=== PATIENT | male | born 1950 | race Caucasian/White ===

== ENCOUNTER 2017-05-26 13:14 | Inpatient (IN) | payer MEDICARE, BC ==
[~2017-05-26] VITALS: Ht 193 cm
[2017-05-26 15:10] LABS: BASOPHILS 0.5 % (0-2); EOSINOPHILS 1.4 % (0-7); HEMATOCRIT 46.1 % (42.0-54.0); IMMATURE GRANULOCYTES 2.1 % (0-5); LYMPHOCYTES 21.3 % (15-50); MCH 34.9 pg (26.0-34.0); MCHC 34.7 g/dL (31.0-37.0); MCV 100.7 fL (80.0-100.0); MEAN PLATELET VOLUME 10.6 fL (7.4-10.4); MONOCYTES 5.9 % (2-11); NEUTROPHILS 68.8 % (40-80); PLATELET COUNT 241 10x3/uL (130-400); RBC 4.58 10x6/uL (4.20-6.10); RDW 12.7 % (11.5-14.5); WBC 13.2 10x3/uL (4.8-10.8)
[2017-05-26 15:20] LABS: APPEARANCE CLEAR (CLEAR); COLOR YELLOW (YELLOW); SPECIFIC GRAVITY 1.015 (1.005-1.020)
[2017-05-26 15:21] LABS: BILIRUBIN NEGATIVE (NEGATIVE); GLUCOSE 1000 mg/dL (NEGATIVE); KETONE NEGATIVE (NEGATIVE); LEUKOCYTE ESTERASE NEGATIVE (NEGATIVE); NITRITE NEGATIVE (NEGATIVE); PROTEIN NEGATIVE (NEGATIVE); UROBILINOGEN NORMAL (NORMAL)
[2017-05-26 15:27] LABS: ALBUMIN 3.9 g/dL (3.4-5.0); ANION GAP 16.6 mmol/L (8-16); BILIRUBIN - TOTAL 0.64 mg/dL (0.2-1.3); CALCIUM 9.3 mg/dL (8.5-10.1); CARBON DIOXIDE 24.6 mmol/L (21.0-32.0); CREATININE - SERUM 1.7 mg/dL (0.6-1.3); POTASSIUM - SERUM 4.2 mmol/L (3.5-5.1); PROTEIN - SERUM 7.9 g/dL (6.4-8.2)
[2017-05-26 16:58] LABS: CREATINE KINASE 50 UL (21-232); PRO BNP 33 pg/mL (0-125)
[2017-05-26 17:03] LABS: TROPONIN-I < 0.017 ng/mL (0.000-0.060)
[2017-05-26 17:44] LABS: KETONE - SERUM NEGATIVE (NEGATIVE)
[2017-05-26 18:08] LABS: THYROID STIMULATING HORMONE 24.68 uIU/mL (0.36-3.74)
[2017-05-26] MEDS ORDERED: GLUCOPHAGE1000 MG PO (20:56)
[2017-05-26] MEDS ORDERED: LEVOTHYROXINE125 MCG PO (20:56)
--- NOTE | 2017-05-26 23:43 | NUR ---
FIRST [facility] SHOWED 425, A STAT GLUCOSE LEVEL WAS ORDERED AND CAME BACK AT 454. 20UNITS NILESH LOG GIVEN. GLUCOSE LEVEL WAS RECHECED A LITTLE MORE THAN AN HOUR LATER AND CAME BACK AT 399. MARKUS, PROFILE GRINDER TECHNICIAN, WAS NOTIFIED VERBALLY ON THE FLOOR. SHE GAVE INSTRUCTIONS TO RECHECK IN ANOTHER HOUR. PATIENT HAD INCREASED ANXIETY WHILE DOING THE QUICK START AND ADMISSION HISTORY. HIS CONCERNS WERE RELATED TO HIS "OTHER BAG" THAT HAD HIS WALET AND MEDICATIONS IN. DAY IN ER WAS CALLED FROM THE ROOM AND INFORMED THAT A POSSIBLE BAG WAS MISSING. DAY LEFT A MESSAGE WITH MED 2 STAFF THAT THE BAG WAS TAKEN TO HIS HOME BY THE NEGIBOR. PATIENT WAS INFORMED, SOME ANXIETY WAS RELIEVED BUT HE DOESN'T KNOW HIS MEDICATIONS HE IS TAKING AT HOME NOR AN EMERGENCY CONTACT.
--- NOTE | 2017-05-27 02:01 | NUR ---
[facility] WAS 450, DR MILES WAS PAGED
--- NOTE | 2017-05-27 02:09 | NUR ---
DR MILES ORDERED A x1 20 UNIT OF LANTUS AND NOT TO RECHECK AGAIN BECAUSE HE STAYS AROUND 390 AND HAS AN A1C OF 12 FROM THE [facility] HE REVIEWED ALREADY AND NOT TO RECHECK UNTIL THE MORNING.
--- NOTE | 2017-05-27 02:59 | NUR ---
PT WAS ASSESSED FOR ADMISSION ASSESSMENT. HE WAS ANGRY AND BELLIGERENT TO NURSE. TOLD NURSE TO "GO FK YOURSELF" BECAUSE NURSE ASKED HIM IF HE KNEW WHERE HE WAS AT WHEN HE SAID HE HAD BEEN LAYING HERE FOR 2 DAYS. PHYSICAL ASSESSMENT COMPLETED WITH PT SWEARING AGAIN WHEN NURSE DID NEURO CHECK OF PUPILS WITH PENLIGHT. IVF INFUSING TO RFA. REPORT GIVEN TO PRIMARY NURSE.
[2017-05-27 03:02] VITALS: Ht 193 cm
--- NOTE | 2017-05-27 03:13 | NUR ---
CALL LIGHT IN REACH, WILL CONTINUE WITH PLAN OF CARE.
[2017-05-27 04:00] VITALS: BP 126/75
--- NOTE | 2017-05-27 07:10 | NUR ---
AM ROUNDS - PT RESTING QUIETLY, DENIES NEEDS AT THIS TIME. RR EVEN AND UNLABORED. INTRODUCED SELF AND PLACED NAME ON WHITE BOARD. BED IN LOWEST POSTION, CALL HERNANDEZ IN RE[place], WILL CTM.
[2017-05-27 08:00] VITALS: BP 111/70
--- NOTE | 2017-05-27 10:00 | NUR ---
PT VERY AGITATED AND WANTS TO LEAVE NOW. PT STATES "NO ONE IS LISTENING TO ME AND I WANT TO LEAVE." EXPLAINED THAT PT WOULD HAVE TO LEAVE AMA SINCE HE IS NOT DISHCARGED. PT STATES "I DON'T CARE HOW I LEAVE, I JUST WANT OUT, I'M HAVING A PANIC ATTACK." EXPLAINED THAT I COULD CALL DR. MILES AND INFORM HIM OF PT CONDITION BUT PT "DIDN'T WANT TO STAY ANY LONGER". CALLED DR. MILES AT 1005 AND HE GAVE ME VERBAL INSTRUCTIONS TO LET PT LEAVE AMA. IV REMOVED WITH CATHETER TIP INTACT, PT SIGNED AMA PAPERS. PT WAS YELLING AND VERY FRUSTRATED STATING "THIS PLACE IS HORRIBLE." PT VERBALZIED UNDERSTANDING OF WHAT AMA MEANT. WILL LEAVE WHEN HE IS DRESSED.
== END 2017-05-27 11:45 | disposition left against medical advice (07) | DRG 192 ==
LOC: D.ER 13:14 → D.M2 19:28
PROVIDERS: Emergency Medicine; Nurse Practitioner Family; ADMIT Family Medicine
DX: J44.1 Chronic obstructive pulmonary disease with (acute) exacerbation (principal); E11.65 Type 2 diabetes mellitus with hyperglycemia; E03.9 Hypothyroidism, unspecified; R41.0 Disorientation, unspecified; Z87.891 Personal history of nicotine dependence